=== PATIENT | male | born 1960 | race Hispanic/Latino ===

== ENCOUNTER → 2023-01-06 | Day surgery (SDC) | payer MEDICARE ==
[~2023-01-06] MED LIST: DEXTROSE 5% 250ML 250 ML IV ONE; GLUCAGON FOR INJ 1 MG VIAL ONE; HYOSCYAMINE SULFATE 0.5 MG/ML INJ ONE; JANUVIA100 MG PO; JARDIANCE25 MG PO; LACTATED RINGER'S 1,000 ML ONE; LIPITOR10 MG PO; METFORMIN HCL500 MG PO; METOCLOPRAMIDE HCL 10 MG/2ML VIAL ONE; MIDAZOLAM HCL 2 MG/2 ML VIAL ONE; OMEPRAZOLE40 MG PO; POVIDONE IODINE 0.05% 0.05 % ML PO ONE; PROPOFOL IV EMULSION 50 ML IV ONE; RYBELSUS7 MG PO; ZESTRIL10 MG PO
[2023-01-06 13:45] VITALS: BP 103/81
== END | disposition home or self-care (01) ==
LOC: OR 09:41
PROVIDERS: ATTEND Internal Medicine Gastroenterology
DX: K20.90 Esophagitis, unspecified without bleeding (principal); D12.2 Benign neoplasm of ascending colon; K29.70 Gastritis, unspecified, without bleeding; K29.80 Duodenitis without bleeding; K52.9 Noninfective gastroenteritis and colitis, unspecified; K62.89 Other specified diseases of anus and rectum; K64.8 Other hemorrhoids; Z71.3 Dietary counseling and surveillance; I10 Essential (primary) hypertension; E11.9 Type 2 diabetes mellitus without complications; E78.00 Pure hypercholesterolemia, unspecified; Z01.810 Encounter for preprocedural cardiovascular examination; Z79.84 Long term (current) use of oral hypoglycemic drugs; Z79.899 Other long term (current) drug therapy; Z68.25 Body mass index [BMI] 25.0-25.9, adult
CPT/HCPCS: 36415; 43239; 43450; 45380; 45385; 82948; 83630; 83993; 87045; 87177; 87324; 87328; 87449; 93005; C9113; J1610; J1980; J2250; J2704; J2765; J7070; J7121; 45378

== ENCOUNTER → 2023-01-26 | Outpatient (CLI) | payer MEDICARE ==
[~2023-01-26] MED LIST changes: -DEXTROSE 5% 250ML 250 ML IV ONE; -GLUCAGON FOR INJ 1 MG VIAL ONE; -HYOSCYAMINE SULFATE 0.5 MG/ML INJ ONE; -LACTATED RINGER'S 1,000 ML ONE; -METOCLOPRAMIDE HCL 10 MG/2ML VIAL ONE; -MIDAZOLAM HCL 2 MG/2 ML VIAL ONE; -POVIDONE IODINE 0.05% 0.05 % ML PO ONE; -PROPOFOL IV EMULSION 50 ML IV ONE
== END ==
LOC: DX 09:12
PROVIDERS: ATTEND Internal Medicine Gastroenterology
DX: R19.5 Other fecal abnormalities (principal); R10.9 Unspecified abdominal pain
CPT/HCPCS: 74250